=== PATIENT | male | born 1995 | race Caucasian/White ===

== ENCOUNTER 2023-06-17 11:06 | Emergency (ER) | payer OTHER ==
[~2023-06-17] VITALS: Ht 177.8 cm; Wt 68.0 kg
[2023-06-17 11:06] VITALS: BP_SYST 111; PULSE 87; RESP 19; TEMP 97.2; O2SAT 98
[2023-06-17 12:27] VITALS: BP_SYST 111; PULSE 87; RESP 19; TEMP 97.2; O2SAT 98
== END 2023-06-17 11:30 | disposition home or self-care (01) ==
LOC: SED 11:06
DX: Z02.89 Encounter for other administrative examinations (principal); E11.9 Type 2 diabetes mellitus without complications; Z79.899 Other long term (current) drug therapy
CPT/HCPCS: 99283